=== PATIENT | male | born 1955 | race African-American/Black ===

== ENCOUNTER 2018-07-17 20:57 | Emergency (ER) | payer SELFPAY ==
[~2018-07-17] VITALS: Ht 185.4 cm; Wt 107.3 kg
[2018-07-17 22:45] VITALS: BP 171/81
== END 2018-07-17 23:18 | disposition home or self-care (01) ==
LOC: EMS 20:59
DX: H11.32 Conjunctival hemorrhage, left eye (principal); I10 Essential (primary) hypertension; F17.210 Nicotine dependence, cigarettes, uncomplicated